=== PATIENT | female | born 1980 | race American Indian/Alaskan Native ===

== ENCOUNTER 2019-01-13 13:07 | Emergency (ER) | payer MEDICAID, OTHER ==
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
[2019-01-13] MEDS ORDERED: ULTRAM PO ONE (14:19)
[2019-01-13] MEDS ORDERED: IBUPROFEN PO ONE (14:19)
[2019-01-13 14:46] VITALS: BP 155/69
[2019-01-13 16:04] LABS: HCG Qualitative,Urine Negative (Negative)
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
--- NOTE | 2019-01-13 17:21 | Cat Scan Report ---
PROCEDURE: CT CERVICAL SPINE WO CON TECHNIQUE: Computerized tomography of the cervical spine was performed from the skull base to T1 wit hout contrast material. CT DOSE LENGTH PRODUCT: 739.2 mGycm HISTORY: pain COMPARISONS: None . FINDINGS: Vertebral body heights and alignment are maintained. No acute fracture or subluxation is seen. Bilate ral borderline sized 1 cm short axis cervical lymph nodes are present. IMPRESSION: No fracture or subluxation is seen. There is mild cervical adenopathy. . This document is electronically signed by Kristy Merritt MD., January 13 2019 05:19:29 PM ET
--- NOTE | 2019-01-13 17:46 | Cat Scan Report ---
PROCEDURE: CT LUMBAR SPINE WO CON TECHNIQUE: CT images of the lumbar spine were obtained without the use of IV contrast HISTORY: pain COMPARISONS: None available FINDINGS: Vertebral body heights and alignment are maintained. No fracture or subluxation is seen. IMPRESSION: No acute fracture or subluxation. This document is electronically signed by Kristy Merritt MD., January 13 2019 05:44:40 PM ET
== END 2019-01-13 18:17 | disposition home or self-care (01) ==
LOC: ED 13:07
DX: S13.4XXA Sprain of ligaments of cervical spine, initial encounter (principal); S39.012A Strain of muscle, fascia and tendon of lower back, initial encounter; S00.93XA Contusion of unspecified part of head, initial encounter; I10 Essential (primary) hypertension; F17.200 Nicotine dependence, unspecified, uncomplicated; Z88.8 Allergy status to other drugs, medicaments and biological substances; Z88.0 Allergy status to penicillin; Z79.1 Long term (current) use of non-steroidal anti-inflammatories (NSAID); Z79.899 Other long term (current) drug therapy; V49.49XA Driver injured in collision with other motor vehicles in traffic accident, initial encounter; Y92.488 Other paved roadways as the place of occurrence of the external cause; Y93.89 Activity, other specified; Y99.8 Other external cause status
CPT/HCPCS: 70450; 72125; 72131; 81025